=== PATIENT | female | born 1995 | race Caucasian/White ===

== ENCOUNTER 2022-06-27 05:19 | Inpatient (IN) ==
[2022-06-27] MEDS ORDERED: CARBOPROST TROMETHAMINE 250 MCG/ML AMP IM PRN (05:28)
[2022-06-27] MEDS ORDERED: ceFAZolin 2,000 MG/50 ML DUPLEX IV ONE (05:28)
[2022-06-27] MEDS ORDERED: TRANEXAMIC ACID 1,000 MG in SODIUM CHLORIDE 0.9% 100 ML IV PRN (05:28)
[2022-06-27] MEDS ORDERED: miSOPROStoL 200 MCG TABLET RECTAL PRN (05:28)
[2022-06-27] MEDS ORDERED: FAMOTIDINE 20 MG/2 ML VIAL IV ONE (05:28)
[2022-06-27] MEDS ORDERED: METHYLERGONOVINE 0.2 MG/1 ML AMP IM PRN (05:28)
[2022-06-27] MEDS ORDERED: CITRIC ACID/SODIUM CITRATE 30 ML UDCUP PO ONE (05:28)
[2022-06-27] MEDS ORDERED: OXYTOCIN/LR 20 UNIT/1,000 ML BAG IV ONE ×2 (05:28→12:20)
[2022-06-27] MEDS ORDERED: hydrOXYzine HCL 25 MG/1 ML VIAL IM PRN (05:31)
[2022-06-27] MEDS ORDERED: ePHEDrine 50 MG/ML VIAL IV PRN (05:31)
[2022-06-27] MEDS ORDERED: LACTATED RINGERS 1,000 ML IV ONE (05:31)
[2022-06-27] MEDS ORDERED: diphenhydrAMINE 50 MG/1 ML VIAL IV PRN ×2 (05:31)
[2022-06-27] MEDS ORDERED: PROMETHAZINE 25 MG/1 ML VIAL IM ONE (05:31)
[2022-06-27] MEDS ORDERED: ONDANSETRON 4 MG/2 ML VIAL IV ONE ×2 (05:31→11:00)
[2022-06-27] MEDS ORDERED: TRANEXAMIC ACID 1,000 MG/10 ML VIAL ONE (06:10)
[2022-06-27 06:20] LABS: Basophils # 0.1 10*3/uL (0.0-0.2); Basophils % 0.6 % (0.0-0.8); Eosinophils # 0.2 10*3/uL (0.0-0.87); Eosinophils % 1.7 % (0.00-10.9); Hemoglobin 11.4 GM/DL (12.0-16.0); Immature Granulocytes Absolute 0.09 #; Lymphocytes # 1.7 10*3/uL (1.4-4.0); Mean Corpuscular HGB Conc 34.5 GM/DL (32-36); Mean Corpuscular Volume 96.5 FL (87-102); Mean Platelet Volume 10.5 FL (9.6-12.0); Monocytes # 0.7 10*3/uL (0.11-0.8); Neutrophils % 69.7 % (38.7-73.9); Platelet Count 161 T/CUMM (130-400); Red Blood Count 3.42 MC/CUMM (3.8-5.5); Red Cell Distribution Width 13.2 % (9.3-17.3)
[2022-06-27 06:30] LABS: INR 0.9; PT Patient Result 9.8 SECS (10.1-12.1); Partial Thromboplastin Time 27.7 SECS (23.7-32.9)
[2022-06-27] MEDS: LACTATED RINGERS 1,000 ML IV SCH ×2 (07:06→21:23)
[2022-06-27] MEDS ORDERED: PHENYLEPHRINE 1 MG/10 ML SYRINGE IV ONE (07:19)
[2022-06-27] MEDS ORDERED: BUPIVACAINE SPINAL 0.75% 2 ML AMP SPINAL ONE (07:19)
[2022-06-27] MEDS ORDERED: ONDANSETRON 4 MG/2 ML VIAL ONE (07:19)
[2022-06-27] MEDS ORDERED: buprenorphine HCL 0.3 MG/ML VIAL ONE (07:20)
[2022-06-27] MEDS ORDERED: KETOROLAC 30 MG/1 ML VIAL ONE (08:05)
[2022-06-27] MEDS ORDERED: ACETAMINOPHEN INJ 1,000 MG/100 ML VIAL IV ONE (08:05)
[2022-06-27] MEDS ORDERED: propofoL 200 MG/20 ML VIAL IV ONE (08:14)
[2022-06-27] MEDS ORDERED: LIDOCAINE 2% 5 ML VIAL ONE (08:14)
[2022-06-27 08:21] LABS: Cord Arterial Blood HCO3 21.6 MMOL/L
[2022-06-27 08:23] LABS: Cord Venous Blood HCO3 22.1 MMOL/L; Cord Venous Blood PCO2 43.1 MMHG; Cord Venous Blood PO2 28.5
[2022-06-27 08:24] LABS: RBC,Urine 1 /HPF (0-4); Squamous Epithelial Cell,Urine Few /HPF (0-10); Urine Appearance Clear (Clear); Urine Color Yellow (Yellow)
[2022-06-27 08:25] LABS: Bilirubin,Urine Negative (Negative); Blood, Urine Negative (Negative); Glucose,Urine (UA) Negative (Negative); Ketones,Urine Negative (Negative); Nitrite,Urine Negative (Negative); Protein,Urine Negative (Negative); Urine Specific Gravity 1.015 (1.001-1.035); Urine Urobilinogen 0.2 eU/dL (<2.0)
[2022-06-27] MEDS ORDERED: HYDROmorphone 1 MG/1 ML SYRINGE IV ONE (11:00)
[2022-06-27] MEDS ORDERED: ACETAMINOPHEN 325 MG TABLET PO PRN (12:20)
[2022-06-27] MEDS ORDERED: BENZOCAINE 20%/MENTHOL 0.5% SPRAY 56 GM CAN TOP PRN (12:20)
[2022-06-27] MEDS ORDERED: BISACODYL 10 MG SUPP RECTAL PRN (12:20)
[2022-06-27] MEDS ORDERED: WITCH HAZEL PADS 100/JAR TOP PRN (12:20)
[2022-06-27] MEDS ORDERED: oxyCODONE/ACETAMINOPHEN 5-325 MG TABLET PO PRN (12:20)
[2022-06-27] MEDS ORDERED: HYDROCORTISONE 2.5% RECTAL CREAM 30 GM TUBE TOP PRN (12:20)
[2022-06-27] MEDS ORDERED: LANOLIN 50% CREAM 0.3 OZ TUBE TOP PRN (12:20)
[2022-06-27] MEDS ORDERED: RHO(D) IMMUNE GLOBULIN 300 MCG SYRINGE IM ONE (12:30)
[2022-06-27] MEDS ORDERED: MEASLES/MUMPS/RUBELLA VACCINE 0.5 ML VIAL SUBCUT ONE (12:30)
[2022-06-27] MEDS ORDERED: DIPH/TET/ACEL PERT BOOSTER VACCINE 0.5 ML VIAL IM ONE (12:30)
[2022-06-27] MEDS: ONDANSETRON 4 MG/2 ML VIAL IV PRN ×2 (12:34→20:50)
[2022-06-27] MEDS: ACETAMINOPHEN 500 MG TABLET PO SCH ×2 (14:56→20:51)
[2022-06-27] MEDS: KETOROLAC 30 MG/1 ML VIAL IV SCH ×2 (18:23→20:56)
[2022-06-27] MEDS: DOCUSATE SODIUM 100 MG CAPSULE PO SCH (20:52)
[2022-06-28] MEDS: KETOROLAC 30 MG/1 ML VIAL IV SCH (02:39)
[2022-06-28] MEDS: ACETAMINOPHEN 500 MG TABLET PO SCH (03:00)
[2022-06-28 06:10] LABS: Basophils % 0.1 % (0.0-0.8); Eosinophils # 0.1 10*3/uL (0.0-0.87); Eosinophils % 1.4 % (0.00-10.9); Hematocrit 23.1 VOL% (35.7-47.0); Immature Granulocytes % 0.6 %; Immature Granulocytes Absolute 0.05 #; Lymphocytes # 1.3 10*3/uL (1.4-4.0); Lymphocytes % 15.7 % (21.3-54.2); Mean Corpuscular HGB Conc 35.1 GM/DL (32-36); Mean Corpuscular Volume 98.3 FL (87-102); Mean Platelet Volume 10.2 FL (9.6-12.0); Monocytes # 0.6 10*3/uL (0.11-0.8); Monocytes % 7.7 % (1.7-12.7); Neutrophils % 74.5 % (38.7-73.9); Platelet Count 144 T/CUMM (130-400); Red Blood Count 2.35 MC/CUMM (3.8-5.5); Red Cell Distribution Width 13.3 % (9.3-17.3); White Blood Count 8.3 T/CUMM (4-12)
[2022-06-28 06:11] LABS: Hemoglobin 8.1 GM/DL (12.0-16.0)
[2022-06-28] MEDS: DOCUSATE SODIUM 100 MG CAPSULE PO SCH ×2 (08:51→19:34)
[2022-06-28] MEDS: oxyCODONE/ACETAMINOPHEN 5-325 MG TABLET PO PRN ×3 (08:51→19:33)
[2022-06-28] MEDS: ONDANSETRON 4 MG/2 ML VIAL IV PRN (08:56)
[2022-06-28] MEDS: IBUPROFEN 800 MG TABLET PO PRN ×2 (12:55→19:33)
[2022-06-28] MEDS: SIMETHICONE CHEW 80 MG TABLET PO PRN (19:33)
[2022-06-28] MEDS ORDERED: ONDANSETRON 4 MG TABLET PO PRN (23:24)
[2022-06-29] MEDS: DOCUSATE SODIUM 100 MG CAPSULE PO SCH ×2 (02:18→08:47)
[2022-06-29] MEDS: IBUPROFEN 800 MG TABLET PO PRN ×2 (02:19→10:56)
[2022-06-29] MEDS: oxyCODONE/ACETAMINOPHEN 5-325 MG TABLET PO PRN (02:19)
[2022-06-29] MEDS: SIMETHICONE CHEW 80 MG TABLET PO PRN ×2 (02:20→08:48)
[2022-06-29] MEDS ORDERED: FERROUS SULFATE 325 MG TABLET PO SCH (09:00)
[2022-06-29 09:34] VITALS: BP 119/77
== END 2022-06-29 13:45 | disposition home or self-care (01) | DRG 540 ==
LOC: N.LD 05:19 → N.OB 12:20
PROVIDERS: ADMIT Specialist; ATTEND Specialist
PROC: LDCSECT (ICD-10-PCS; 2022-06-27 07:30)